=== PATIENT | female | born 1955 | race Two or more races ===

== ENCOUNTER 2025-07-09 12:15 | Inpatient (IN) | payer OTHER ==
[~2025-07-09] VITALS: Ht 167.6 cm; Wt 105.7 kg
[2025-07-14] MEDS ORDERED: TRULICITY4.5 MG/0.5 (12:33)
[2025-07-14] MEDS ORDERED: HUMALOG100 UNIT/2 (12:34)
[2025-07-14] MEDS ORDERED: LANTUS SOL100 UNIT/1 (12:34)
[2025-07-14] MEDS ORDERED: BETAPACE80 MG PO (12:35)
[2025-07-14] MEDS ORDERED: LOSARTAN-HCTZ1 EAC1 PO (12:35)
[2025-07-14] MEDS ORDERED: ELIQUIS5 MG PO (12:35)
[2025-07-14] MEDS ORDERED: FARXIGA10 MG PO (12:36)
[2025-07-14] MEDS ORDERED: SYNTHROID75 MCG PO (12:36)
[2025-07-14] MEDS ORDERED: VYTORIN 10-401 EACH PO (12:36)
[2025-07-14] MEDS ORDERED: NEXIUM 24HR20 MG PO (12:36)
[2025-07-14 12:37] VITALS: BP 130/80
[2025-07-14 13:07] LABS: COVID-19 AG NEGATIVE (NEGATIVE)
[2025-07-19] MEDS ORDERED: BACTRIM DS TAB1 EACH PO (12:48)
[2025-07-19] MEDS ORDERED: MEDROLPACK PO (12:48)
[2025-07-19] MEDS ORDERED: PERCOCET 5-3251 EACH PO (12:48)
[2025-07-19] MEDS ORDERED: ZOFRAN8 MG PO (12:49)
[2025-07-19] MEDS ORDERED: GABAPENTIN100 M2 PO (12:49)
[2025-07-19] MEDS ORDERED: COLACE100 MG PO (12:49)
[2025-07-19] MEDS ORDERED: NEURONTIN800 MG PO (12:50)
[2025-07-19] MEDS ORDERED: 0.9 % SODIUM CHLORIDE 1,000 ML IV SCH (14:30)
[2025-07-19] MEDS ORDERED: ENALAPRILAT DIHYDRATE 1.25 MG/ML VIAL IV PRN (14:30)
[2025-07-19] MEDS ORDERED: PROMETHAZINE HCL 50 MG/ML AMPUL IM PRN (14:30)
[2025-07-19] MEDS ORDERED: METHYLPREDNISOLONE SOD SUCC 125 MG VIAL IV SCH (17:00)
[2025-07-19] MEDS ORDERED: VANCOMYCIN HCL 1,000 MG VIAL IV ONE (17:00)
[2025-07-19] MEDS ORDERED: VANCOMYCIN HCL 1,000 MG VIAL SPEPROC ONE (17:00)
[2025-07-19] MEDS ORDERED: METHYLPREDNISOLONE ACETATE 80 MG/ML VIAL IU ONE (17:00)
[2025-07-19] MEDS ORDERED: CEFAZOLIN SODIUM 1,000 MG in 0.9 % SODIUM CHLORIDE 50 ML IV SCH (17:00)
[2025-07-19] MEDS ORDERED: METHYLPREDNISOLONE SOD SUCC 125 MG VIAL IV ONE ×2 (17:00)
[2025-07-19] MEDS ORDERED: VANCOMYCIN HCL 1,000 MG VIAL IR ONE (17:00)
[2025-07-19] MEDS ORDERED: DOCUSATE SODIUM 100MG CAP PO SCH (17:00)
[2025-07-19] MEDS ORDERED: MORPHINE SULFATE 4 MG/ML CARTRIDGE IV SCH (17:00)
[2025-07-19 18:33] VITALS: BP 115/67; O2SAT 99
[2025-07-19] MEDS ORDERED: ACETAMINOPHEN 500 MG GEL..CAP PO SCH (20:00)
[2025-07-19] MEDS ORDERED: GABAPENTIN 800 MG TABLET PO SCH (21:00)
[2025-07-19] MEDS ORDERED: VANCOMYCIN HCL 1,000 MG VIAL IV SCH (21:00)
[2025-07-20] VITALS (8 sets, daily range): BP systolic 92–106; BP diastolic 55–60; O2SAT 90–99
[2025-07-20] MEDS ORDERED: SODIUM CHLORIDE 0.45 % 1,000 ML IV SCH
[2025-07-20] MEDS ORDERED: LEVOTHYROXINE SODIUM 75 MCG TABLET PO SCH (06:00)
[2025-07-20] MEDS ORDERED: OxyCODONE HCL 5 MG TABLET (ROXICODONE) PO SCH (06:00)
[2025-07-20 06:16] LABS: BASO % 0.0 % (0.1-1.2); EOS # 0.00 (0.04-0.54); EOS % 0.0 % (0.7-7.0); LYMPH # 0.63 (1.18-3.74); LYMPH % 9.4 % (19.3-53.1); MEAN PLATELET VOLUME 11.30 fl (9.4-12.4); MONO # 0.12 (0.24-0.82); MONO % 1.8 % (4.7-12.5); NEUT # 5.90 (1.56-6.13); NEUT % 88.5 % (34.0-71.1); RED CELL DISTRIBUTION WIDTH 13.6 % (11.6-14.4)
[2025-07-20 06:43] LABS: BUN CREA RATIO 22.0 (7.0-25.0); CREATININE SERUM 0.76 mg/dL (0.55-1.02); GFR 75.23; GLUCOSE FASTING 173.0 mg/dL (65-100); OSMOLALITY SERUM 287.0 MOSM/KG (275-295)
[2025-07-20] MEDS ORDERED: ENOXAPARIN SODIUM 40 MG/0.4 ML SYRINGE SUBCUTANEO SCH (09:00)
[2025-07-20] MEDS ORDERED: LOSARTAN/HYDROCHLOROTHIAZIDE 1 UDTAB TABLET PO SCH (09:00)
[2025-07-20] MEDS ORDERED: TAMSULOSIN HCL 0.4 MG CAP PO SCH (09:00)
[2025-07-20] MEDS ORDERED: INSULIN LISPRO 1,000 UNIT/10 ML UNITS SUBCUTANEO PRN (12:30)
[2025-07-20] MEDS ORDERED: DEXTROSE 50 % IN WATER 0.5 G/ML DISP.SYRIN IV PRN (12:30)
[2025-07-20 13:11] LABS: COVID-19 AG NEGATIVE (NEGATIVE)
[2025-07-21] VITALS (9 sets, daily range): BP systolic 114–137; BP diastolic 52–72; O2SAT 90–98
[2025-07-21] MEDS ORDERED: INSULIN LISPRO 1,000 UNIT/10 ML UNITS SUBCUTANEO STA (11:52)
[2025-07-21] MEDS ORDERED: INSULIN LISPRO 1,000 UNIT/10 ML UNITS SUBCUTANEO SCH (12:00)
[2025-07-21] MEDS ORDERED: INSULIN GLARGINE,HUM.REC.ANLOG 1,000 UNITS/10 ML UNITS SUBCUTANEO SCH ×2 (21:00)
[2025-07-22 01:23] VITALS: BP 109/67; O2SAT 98
[2025-07-22 04:00] VITALS: O2SAT 94
[2025-07-22 08:00] VITALS: BP 109/71; O2SAT 98
[2025-07-22 08:36] VITALS: O2SAT 90
[2025-07-22] MEDS ORDERED: MINERAL OIL 30 ML BLIST.PACK PO STA (11:53)
[2025-07-22] MEDS ORDERED: LACTULOSE 20 G/30 ML BLIST.PACK PO STA (11:53)
[2025-07-22] MEDS ORDERED: MAGNESIUM HYDROXIDE 30 ML BLIST.PACK PO STA (11:56)
== END 2025-07-22 14:41 | DRG 458 ==
LOC: O/R 07-19 11:00 → SURH 07-19 11:00
PROVIDERS: ADMIT Orthopaedic Surgery Orthopaedic Surgery of the Spine; ATTEND Orthopaedic Surgery Orthopaedic Surgery of the Spine
PROC: 0SG0071 Fusion of Lumbar Vertebral Joint with Autologous Tissue Substitute, Posterior Approach, Posterior Column, Open Approach (ICD-10-PCS; 2025-07-19)
PROC: 0ST20ZZ Resection of Lumbar Vertebral Disc, Open Approach (ICD-10-PCS; 2025-07-19)
PROC: 07DR0ZZ Extraction of Iliac Bone Marrow, Open Approach (ICD-10-PCS; 2025-07-19)
PROC: 4A12X4Z Monitoring of Cardiac Electrical Activity, External Approach (ICD-10-PCS; 2025-07-19)
PROC: XRGB0R7 Fusion of Lumbar Vertebral Joint using Custom-Made Anatomically Designed Interbody Fusion Device, Open Approach, New Technology Group 7 (ICD-10-PCS; principal; 2025-07-19 16:00)
DX: M48.07 Spinal stenosis, lumbosacral region (principal); M41.56 Other secondary scoliosis, lumbar region; M43.17 Spondylolisthesis, lumbosacral region; I10 Essential (primary) hypertension; E03.8 Other specified hypothyroidism